=== PATIENT | female | born 1995 | race Caucasian/White ===

== ENCOUNTER 2017-01-10 18:56 | Emergency (ER) | payer OTHER ==
[2017-01-10 19:07] VITALS: BP 114/68
--- NOTE | 2017-01-10 20:01 | UC ---
Abdominal Pain Female HPI - HPI Summary HPI Summary: onset of vomiting, clear liquid emesis, about 4 hours ago, with 2 episode of dry heaves. Developed sharp pain in the RUQ several hours ago. Nausea persisting. Last stool was yesterday, loosely formed. Decreased appetite for the past 3 weeks, eating very little, uncertain if losing weight. No hx of eating disorder. No significant alcohol intake. Ibuprofen 600mg 3 hours ago has helped with pain. 3+ hematuria, does have some right flank pain. Also has had off and on dark vaginal discharge consistent with spotting. - History of Current Complaint Chief Complaint: UCAbdominalPain Stated Complaint: NAUSEA/RIGHT SIDE PAIN Time Seen by Provider: 01/10/17 19:58 Hx Obtained From: Patient Hx Last Menstrual Period: 12/26/16 ?: No Onset/Duration: Sudden Onset, Lasting Hours - 4 Timing: Constant Severity Initially: Moderate Severity Currently: Moderate - but decreased. Pain Intensity: 6 Pain Scale Used: 0-10 Numeric Location: Discrete At: RUQ Radiates: No Character: Sharp Aggravating Factor(s): Movement Alleviating Factor(s): OTC Analgesics - ibuprofen 600mg Associated Signs and Symptoms: Positive: Negative - Risk Factors Ovarian Torsion Risk Factor: Negative Allergies/Adverse Reactions: Allergies Allergy/AdvReac Type Severity Reaction Status Date / Time No Known Allergies Allergy Verified 01/10/17 19:07 PMH/Surg Hx/FS Hx/Imm Hx Previously Healthy: Yes - Surgical History Surgical History: None Surgery Procedure, Year, and Place: denies - Family History Known Family History: Positive: Other - mother has had cholecystitis. - Social History Occupation: Student Lives: Alone - in dorm Alcohol Use: None Substance Use Type: None Smoking Status (MU): Never Smoked Tobacco Review of Systems Constitutional: Fatigue, Other - has been feeling chilled off and on for weeks. Skin: Negative Eyes: Negative ENT: Negative Respiratory: Negative Cardiovascular: Negative Gastrointestinal: Abdominal Pain, Vomiting Genitourinary: Hematuria Motor: Negative Neurovascular: Negative Musculoskeletal: Negative Neurological: Negative Psychological: Other - tearful and feeling stressed about school. No hx of depression. Some difficulty focusing and concentratin gfor the past severa weeks. All Other Systems Reviewed And Are Negative: Yes Physical Exam Triage Information Reviewed: Yes Appearance: Ill-Appearing - looks uncomfortable. Vital Signs: Initial Vital Signs Temp 98.9 F 01/10/17 19:04 Pulse 63 01/10/17 19:04 Resp 16 01/10/17 19:04 BP 114/68 01/10/17 19:04 Pulse Ox 100 01/10/17 19:04 Eyes: Positive: Conjunctiva Inflamed ENT: Positive: Pharynx normal Neck: Positive: Enlarged Nodes @ - shotty nodes in anterior cervical chain. Respiratory: Positive: Lungs clear, Normal breath sounds Cardiovascular: Positive: RRR, No Murmur Abdomen Description: Positive: No Organomegaly, Soft, CVA Tenderness (R), Other : - tenderness RUQ. Negative: Distended, Guarding, Hernia @, Hepatomegaly, Peritoneal Signs, Splenomegaly Bowel Sounds: Positive: Present Musculoskeletal Exam: Normal Neurological: Positive: Alert, Muscle Tone Normal Psychological Exam: Other - tearful Diagnostics - Laboratory Diagnostic Studies Completed/Ordered: UA with 3+ blood. Abd Pain Female Course/Dx - Course Course Of Treatment: nausea and pain resolved. Aware of need for diagnostic work up tomorrow. - Differential Dx/Diagnosis Differential Diagnosis: Gall Bladder Disease, Pancreatitis, Renal Colic, Urinary Tract Infection Provider Diagnoses: right upper quadrant pain NYD Discharge - Discharge Plan Condition: Stable Disposition: HOME Patient Education Materials: Cholecystitis (ED) Additional Instructions: As discussed, you must follow up tomorrow with student health, because the cause of the pain needs to be determined. It could be gallstones, it could be a kidney stone. An ultrasound scan can help to sort this out. If you have recurrence of pain and vomiting, you must go the ER in the meantime for evaluation.
[2017-01-10] MEDS ORDERED: Ondansetron ODT TAB* 4 MG PO ONE (20:18)
== END 2017-01-10 20:52 | disposition home or self-care (01) ==
LOC: UCCORT 18:56
DX: R11.2 Nausea with vomiting, unspecified (principal); R19.7 Diarrhea, unspecified; R10.11 Right upper quadrant pain
CPT/HCPCS: 81003; 87077; 87086; 87186; 99212; A9270-GY; G0463

== ENCOUNTER 2018-01-03 14:37 | Emergency (ER) | payer OTHER ==
[2018-01-03 14:59] VITALS: BP 116/66
--- NOTE | 2018-01-03 15:17 | ED ---
Throat Pain/Nasal Congestion - HPI Summary HPI Summary: 22 yr old female who uses contact lenses presents here with complaint of pain to the right eye that started last evening, and now she has generalized irritation to the same eye with watery discharge. Denies fever, chills, FB sensation. Had a similar problem with the left eye a couple weeks ago that got better on its own. - History of Current Complaint Chief Complaint: UCEye Time Seen by Provider: 01/03/18 15:01 - Allergies/Home Medications Allergies/Adverse Reactions: Allergies Allergy/AdvReac Type Severity Reaction Status Date / Time No Known Allergies Allergy Verified 01/10/17 19:07 Home Medications: Home Medications Norgestimate-Ethinyl Estradiol [Ortho-Cyclen 28 Tablet] 1 each PO DAILY [History Confirmed 01/03/18] PMH/Surg Hx/FS Hx/Imm Hx Previously Healthy: Yes - Surgical History Surgery Procedure, Year, and Place: denies Infectious Disease History: No Infectious Disease History: Denies: Hx Clostridium Difficile, Hx Hepatitis, Hx Human Immunodeficiency Virus (HIV), Hx of Known/Suspected MRSA, Hx Shingles, Hx Tuberculosis, Hx Known/ Suspected VRE, Hx Known/Suspected VRSA, Traveled Outside the [place] in Last 30 Days - Family History Known Family History: Positive: None, Other - mother has had cholecystitis. - Social History Alcohol Use: Occasionally Substance Use Type: Reports: None Smoking Status (MU): Never Smoked Tobacco Review of Systems Constitutional: Negative Positive: Drainage, Erythema All Other Systems Reviewed And Are Negative: Yes Physical Exam Triage Information Reviewed: Yes Vital Signs On Initial Exam: Initial Vitals Temp Pulse Resp BP Pulse Ox 98.5 F 85 20 116/66 99 01/03/18 14:52 01/03/18 14:52 01/03/18 14:52 01/03/18 14:52 01/03/18 14:52 Vital Signs Reviewed: Yes Appearance: Positive: Well-Appearing, No Pain Distress Skin: Positive: Warm Eyes: Positive: EOMI, Conjunctiva Inflammed, Other: - eye irritated Neck: Positive: Supple Respiratory/Lung Sounds: Positive: Clear to Auscultation, Breath Sounds Present Cardiovascular: Positive: RRR. Negative: Murmur Abdomen Description: Positive: Nontender Musculoskeletal: Positive: Strength/ROM Intact Neurological: Positive: Sensory/Motor Intact, Alert, Oriented to Person Place, Time, CN Intact II-III Psychiatric: Positive: Normal - [place] Coma Scale Best Eye Response: 4 - Spontaneous Best Motor Response: 6 - Obeys Commands Best Verbal Response: 5 - Oriented Coma Scale Total: 15 Diagnostics - Vital Signs Vital Signs Temp Pulse Resp BP Pulse Ox 01/03/18 14:52 98.5 F 85 20 116/66 99 - Laboratory Lab Statement: Any lab studies that have been ordered have been reviewed, and results considered in the medical decision making process. EENT Course/Dx - Course Course Of Treatment: 22 yr old female with eye irritation. She requires a slit lamp examination and further eye evaluation. She wants to go to [facility] for further eval. She was offered ambulance, but declined and felt she was able to drive herself to [facility]. - Diagnoses Provider Diagnoses: Pain, eye, right Discharge - Sign-Out/Discharge Documenting (check all that apply): Discharge/Admit/Transfer - Discharge Plan Condition: Good Disposition: HOME Patient Education Materials: Eye Pain (ED) Referrals: Non Staff,Doctor [Primary Care Provider] - Additional Instructions: You need to go to the ER immediately upon leaving here for further evaluation of your eye. - Billing Disposition and Condition Condition: GOOD Disposition: HOME
== END 2018-01-03 15:23 | disposition home or self-care (01) ==
LOC: UCCORT 14:37
DX: H57.11 Ocular pain, right eye (principal)
CPT/HCPCS: 99212; G0463